=== PATIENT | male | born 1970 | race Caucasian/White ===

== ENCOUNTER 2016-09-24 20:16 | Emergency (ER) | payer OTHER ==
[2016-09-24] MEDS ORDERED: ACETAMINOPHEN 325 MG TABLET (FP) ONE (20:23)
[2016-09-24] MEDS ORDERED: ACETAMINOPHEN 325 MG TABLET (FP) PO ONE (20:25)
[2016-09-24 20:27] VITALS: BMI 35.4
[2016-09-24] MEDS ORDERED: SODIUM CHLORIDE 0.9% 1000 ML INFUS.BAG IV PRN (21:03)
--- NOTE | 2016-09-24 22:08 | PDOC ---
History of Present Illness - General Chief Complaint: SIRS, Suspected/Possible Stated Complaint: FEVER AND CHILLS Time Seen by Provider: 09/24/16 20:52 - History of Present Illness Initial Comments: 09/24/16 22:04 CHIEF COMPLAINT: fever, chills HISTORY OF PRESENT ILLNESS: 46 yo M with hx of heroin abuse, recently started on methadone program (3 days ago) presents to ED with fever and chills since this afternoon. Patient states he had a rash earlier this morning that has now resolved, but he had blood work done around noon today and afterwards he started feeling sick and feverish. He complains of sore throat and headache but denies any URI symptoms, nausea, vomiting, diarrhea. At home his took his temperature and it was 103F. He also reports feeling "heat to my chest." No recent travel or sick contacts. PAST MEDICAL HISTORY: Denies past medical history FAMILY HISTORY: Denies SOCIAL HISTORY: Intranasal heroin abuse, no IVDU. Smoking history - 1 pack daily , last cigarette 3 months ago. Denies alcohol use. SURGICAL HISTORY: Denies ALLERGIES: Vicodin, shrimp REVIEW OF SYSTEMS General/Constitutional: Fever, chills. Denies weakness, weight change. HEENT: Sore throat. Denies change in vision. Denies ear pain or discharge. Cardiovascular: Denies chest pain or shortness of breath. Respiratory: Denies cough, wheezing, or hemoptysis. Gastrointestinal: Denies nausea, vomiting, diarrhea or constipation. Denies rectal bleeding. Genitourinary: Denies dysuria, frequency, or change in urination. Musculoskeletal: Denies joint or muscle swelling or pain. Denies neck or back pain. Skin and breasts: Denies rash or easy bruising. PHYSICAL EXAM General Appearance: Uncomfortable-appearing, appropriately dressed. HEENT: EOMI, PERRLA, normal ENT inspection, normal voice, TMs normal, pharynx normal. No conjunctival pallor. No photophobia, scleral icterus. Neck: Supple. Trachea midline. No tenderness, rigidity, carotid bruit, stridor , lymphadenopathy, or thyromegaly. Respiratory/Chest: Lungs CTAB. Cardiovascular: RRR. S1, S2. Vascular Pulses: Dorsalis-Pedis (R): 2+, Dorsalis-Pedis (L): 2+ Gastrointestinal/Abdominal: Normal bowel sounds. Abdomen soft, non-distended. No tenderness or rebound tenderness. No organomegaly, pulsatile mass, guarding , hernia, hepatomegaly, splenomegaly. Lymphatic: No adenopathy, tenderness. Musculoskeletal/Extremities: Normal inspection. FROM of all extremities, normal capillary refill. Pelvis Stable. No CVA tenderness. No tenderness to extremities, pedal edema, swelling, erythema or deformity. Integumentary: Appropriate color, dry, warm. No cyanosis, erythema, jaundice or rash Neurologic: licensed investment sales assistant II-XII intact. Fully oriented, alert. Appropriate mood/affect. Motor strength 5/5. No appreciable EOM palsy, facial droop or sensory deficit. 09/24/16 22:08 Past History - Past Medical History Allergies/Adverse Reactions: Allergies Allergy/AdvReac Type Severity Reaction Status Date / Time acetaminophen [From Vicodin] Allergy Severe Nausea Verified 09/24/16 20:18 hydrocodone bitartrate Allergy Severe Nausea Verified 09/24/16 20:18 [From Vicodin] shrimp Allergy Severe Hives Verified 09/24/16 20:18 Home Medications: Ambulatory Orders Cyclobenzaprine HCl [Flexeril -] 10 mg PO TID 11/19/15 Diphenhydramine HCl [Benadryl -] 25 mg PO Q6H 09/24/16 Anemia: No Asthma: No Cancer: No Cardiac Disorders: No CVA: No COPD: No CHF: No Diabetes: No GI Disorders: No Disorders: No HTN: No Hypercholesterolemia: No Kidney Stones: No Liver Disease: No Suicide Attempt (Hx): No Seizures: Yes (R/T DRUGS LAST GREATER THAN A YEAR AGO) Thyroid Disease: No - Surgical History Abdominal Surgery: Yes (HERNIA REPAIR) Appendectomy: Yes Cardiac Surgery: No Cholecystectomy: No Lung Surgery: No Neurologic Surgery: No Orthopedic Surgery: No - Reproductive History Testicular Surgery: No - Psycho/Social/Smoking Cessation Hx Anxiety: Yes Suicidal Ideation: No Smoking History: Current every day smoker Have you smoked in the past 12 months: Yes Number of Cigarettes Smoked Daily: 30 Cigars Per Day: 0 Information on smoking cessation initiated: No 'Breaking Loose' booklet given: 11/19/15 Hx Alcohol Use: Yes Drug/Substance Use Hx: Yes Substance Use Type: Alcohol, Heroin, Opiates Hx Substance Use Treatment: Yes ([facility]) *Physical Exam - Vital Signs Last Vital Signs Temp Pulse Resp BP Pulse Ox 102.6 F H 102 H 18 150/80 98 09/24/16 20:26 09/24/16 20:26 09/24/16 20:26 09/24/16 20:26 09/24/16 20:26 ED Treatment Course - LABORATORY CBC & Chemistry Diagram: 09/24/16 21:45 09/24/16 21:45 - RADIOLOGY Radiology Studies Ordered: Category Date Time Status CHEST X-RAY PORTABLE* [RAD] Stat Radiology 09/24/16 21:03 Taken - Medications Given in the ED: ED Medications Discontinued Medications Generic Name Dose Route Start Last Admin Trade Name Freq PRN Reason Stop Dose Admin Acetaminophen 650 mg 09/24/16 20:25 09/24/16 20:25 Tylenol - PO 09/24/16 20:26 650 mg NOW ONE Administration Medical Decision Making - Medical Decision Making 09/24/16 22:09 46 yo M with hx of intranasal heroin use presents to ED with fever, chills. Patient is febrile to 102.6F and tacyh to 102 on arrival to ED. -CBC, CMP, PT/INR, cardiac profile -UA, UCx -CXR, EKG -Strep, flu swab Labs: WBC 11.7 09/25/16 00:06 Patient positive for group A strep. -Pen G IM Advised patient to f/u with PMD if symptoms do not improve in next 2 days. Advised patient of signs and symptoms for return to ER; patient verbalized understanding and agrees to plan. *DC/Admit/Observation/Transfer Diagnosis at time of Disposition: Streptococcus infection, group A - Discharge Dispostion Disposition: HOME Condition at time of disposition: Stable Admit: No - Referrals Referrals: Kenneth Dc [Primary Care Provider] - - Patient Instructions Printed Discharge Instructions: DI for Strep Throat Additional Instructions: Please follow up with your primary care doctor if symptoms do not improve in 2 days. If you experience continued fever that does not go away with Motrin, nausea, vomiting, diarrhea, or any new or worsening symptoms, please return to the ER.
[2016-09-24 22:26] LABS: BASOPHIL 0.5 % (0-2.0); EOSINOPHIL 0.1 % (0-4.5); MCHC 33.8 g/dl (32.0-35.9); MEAN CELL VOLUME 85.8 fl (80-96); MEAN PLT VOLUME 9.1 fl (7.5-11.1); NEUTROPHILS 83.3 % (42.8-82.8); PLATELET COUNT 152 K/MM3 (134-434); RDW 14.3 % (11.9-15.9); WHITE BLOOD COUNT 11.7 K/mm3 (4.0-10.0)
[2016-09-24 22:28] LABS: URINE APPEARANCE CLEAR; URINE BILIRUBIN NEGATIVE (NEGATIVE); URINE COLOR STRAW; URINE GLUCOSE (UA) NEGATIVE (NEGATIVE); URINE KETONE NEGATIVE (NEGATIVE); URINE LEUK ESTERASE NEGATIVE (NEGATIVE); URINE NITRITE NEGATIVE (NEGATIVE); URINE PROTEIN NEGATIVE (NEGATIVE); URINE UROBILINOGEN NEGATIVE E.U./dl (0.2-1.0)
[2016-09-24 22:36] LABS: URINE BLOOD 2+ (NEGATIVE)
[2016-09-24 22:38] LABS: URINE MUCUS RARE; URINE RBC 2 /hpf (0-3); URINE WBC <1 /hpf (3-5)
[2016-09-24 22:39] LABS: INR 1.21 (0.82-1.09); PROTHROMBIN TIME (PATIENT) 13.4 SEC (9.98-11.88)
[2016-09-24 22:42] LABS: ACTIVATED PTT 28.8 SECONDS (26.9-34.4)
[2016-09-24 23:06] LABS: ALBUMIN 3.7 g/dl (3.4-5.0); ANION GAP 9 (8-16); CALCIUM 8.2 mg/dL (8.5-10.1); CO2 24 mmol/L (21-32); COCKROFT - GAULT 145.14; GLUCOSE,RANDOM 97 mg/dL (74-106); SGOT/AST 23 U/L (15-37); SGPT/ALT 38 U/L (12-78)
[2016-09-24 23:10] LABS: ALK PHOS 75 U/L (45-117); BILIRUBIN,TOTAL 0.4 mg/dL (0.2-1.0); TOT PROT 7.8 g/dl (6.4-8.2); TROPONIN I < 0.02 ng/ml (0.00-0.05)
[2016-09-24 23:20] LABS: VENOUS PH 7.42 (7.32-7.42)
[2016-09-24 23:21] LABS: VENOUS BLOOD GAS HCO3 24.2 meq/L (19-25)
[2016-09-24] MEDS ORDERED: SODIUM CHLORIDE 0.9% 500 ML INFUS.BAG IV ONE (23:36)
[2016-09-24] MEDS ORDERED: KETOROLAC TROMETHAMINE 30 MG/1 ML VIAL IVPUSH ONE (23:36)
[2016-09-24] MEDS ORDERED: KETOROLAC TROMETHAMINE 30 MG/1 ML VIAL ONE (23:39)
[2016-09-25] MEDS ORDERED: PENICILLIN G BENZATHINE 1,200,000 UNIT/2 ML PFS IM ONE (00:05)
[2016-09-25] MEDS ORDERED: PENICILLIN G BENZATHINE 2,400,000 UNIT/4 ML PFS ONE (00:16)
[2016-09-25 01:11] VITALS: BP 107/61; PULSE 99; TEMP 99.1
--- NOTE | 2016-09-25 08:28 | PDOC ---
Patient Follow-up (Call Back) - Post ED Follow - Up Chief Complaint: SIRS, Suspected/Possible Disposition at time of original discharge: HOME - Disposition Additional Instructions/Notes: Throat culture + GAS no call back. rapid strep +. treated with Pen G IM in the ED.
--- NOTE | 2016-09-25 09:59 | EKG ---
Test Reason : Blood Pressure : / mmHG Vent. Rate : 088 BPM Atrial Rate : 088 BPM P-R Int : 172 ms QRS Dur : 082 ms QT Int : 326 ms P-R-T Axes : 056 032 042 degrees QTc Int : 394 ms NORMAL SINUS RHYTHM NORMAL ECG NO PREVIOUS ECGS AVAILABLE Confirmed by DEV ZUNIGA MD ([id number]) on 09/25/2016 9:58:37 AM Referred By: MYA Confirmed By:DEV ZUNIGA MD
== END 2016-09-25 01:10 | disposition home or self-care (01) ==
LOC: JER 20:16
PROC: 3E02329 Introduction of Other Anti-infective into Muscle, Percutaneous Approach (ICD-10-PCS; principal; 2016-09-24)
PROC: 3E0333Z Introduction of Anti-inflammatory into Peripheral Vein, Percutaneous Approach (ICD-10-PCS; 2016-09-24)
DX: J02.0 Streptococcal pharyngitis (principal); B95.0 Streptococcus, group A, as the cause of diseases classified elsewhere
CPT/HCPCS: 36415; 71010-TC; 80053; 81003; 81015; 82550; 82553; 82803; 83605; 84484; 85025; 85610; 85730; 86850; 86900; 86901; 87040; 87070; 87077; 87086; 87430; 87804; 93005; 93010; 99285-25

== ENCOUNTER 2017-11-17 11:25 | Emergency (ER) | payer OTHER ==
[2017-11-17 11:37] VITALS: BP 152/96; PULSE 88; TEMP 99.2; BMI 37.3
[2017-11-17] MEDS ORDERED: MAG HYDROX/AL HYDROX/SIMETH 30 ML UNIT-DOSE CUP PO ONE (13:42)
[2017-11-17] MEDS ORDERED: MAG HYDROX/AL HYDROX/SIMETH 30 ML UNIT-DOSE CUP ONE (13:56)
--- NOTE | 2017-11-17 14:03 | PDOC ---
History of Present Illness <Tr Winslow - Last Filed: 11/17/17 14:59> - History of Present Illness Initial Comments: 11/17/17 14:01 "The patient is a 47 year old male with no significant PMH who presents to the emergency department for evaluation of bloating and softer than usual stools beginning approximately 1.5 months ago. He reports everything he eats causes abdominal bloating. The patient states he started a new diet about 2 months ago which primarily consists of chicken, fish, and salads but no bread or rice. He also reports taking fish oil pills about 2 or 3 times within the same time period but ceased them as they upset his stomach. The patient denies any nausea , vomiting, or constipation. He denies fevers or chills. Denies any abdominal pain. The patient denies chest pain, shortness of breath, headache and dizziness. Denies dysuria, frequency, urgency and hematuria. Allergies: NKA Past surgical history: Appendectomy. Hernia repair. Social history: Former smoker. Former drinker. No reported drug use. PCP: Dr. Kenneth Dc " <Orestes Friend - Last Filed: 11/23/17 11:15> - General Chief Complaint: Pain Stated Complaint: ABD PAIN Time Seen by Provider: 11/17/17 13:00 Past History <Tr Winslow - Last Filed: 11/17/17 14:59> - Past Medical History Anemia: No Asthma: No Cancer: No Cardiac Disorders: No CVA: No COPD: No CHF: No Diabetes: No GI Disorders: No Disorders: No HTN: No Hypercholesterolemia: No Kidney Stones: No Liver Disease: No Seizures: Yes (R/T DRUGS LAST GREATER THAN A YEAR AGO) Thyroid Disease: No - Surgical History Abdominal Surgery: Yes (HERNIA REPAIR) Appendectomy: Yes Cardiac Surgery: No Cholecystectomy: No Lung Surgery: No Neurologic Surgery: No Orthopedic Surgery: No - Reproductive History Testicular Surgery: No - Immunization History Immunization Up to Date: Yes - Suicide/Smoking/Psychosocial Hx Smoking History: Former smoker Have you smoked in the past 12 months: No Number of Cigarettes Smoked Daily: 30 If you are a former smoker, when did you quit?: 2016 Cigars Per Day: 0 Information on smoking cessation initiated: No 'Breaking Loose' booklet given: 11/19/15 Hx Alcohol Use: Yes Drug/Substance Use Hx: Yes Substance Use Type: Alcohol, Heroin, Opiates Hx Substance Use Treatment: Yes ([facility]) <Orestes Friend - Last Filed: 11/23/17 11:15> - Past Medical History Allergies/Adverse Reactions: Allergies Allergy/AdvReac Type Severity Reaction Status Date / Time acetaminophen [From Vicodin] Allergy Severe Nausea Verified 11/17/17 11:32 hydrocodone bitartrate Allergy Severe Nausea Verified 11/17/17 11:32 [From Vicodin] shrimp Allergy Severe Hives Verified 11/17/17 11:32 Home Medications: Ambulatory Orders Cyclobenzaprine HCl [Flexeril -] 10 mg PO TID PRN 11/19/15 Diphenhydramine HCl [Benadryl -] 25 mg PO Q6H PRN 09/24/16 Hydrocodone/Acetaminophen [Hydrocodon-Acetaminophn 10-325] 1 each PO Q4H PRN Abd/GI Specific PMHX - Complaint Specific PMHX Hepatitis: No Pancreatitis: No <Orestes Friend - Last Filed: 11/23/17 11:15> Review of Systems - Review of Systems Comments:: 11/17/17 14:02 "GENERAL/CONSTITUTIONAL: No fever or chills. No weakness. HEAD, EYES, EARS, NOSE AND THROAT: No change in vision. No ear pain or discharge. No sore throat. CARDIOVASCULAR: No chest pain or shortness of breath. RESPIRATORY: No cough, wheezing, or hemoptysis. GASTROINTESTINAL: (+) Abdominal bloating (+) Soft stools. No nausea, vomiting or constipation. GENITOURINARY: No dysuria, frequency, or change in urination. MUSCULOSKELETAL: No joint or muscle swelling or pain. No neck or back pain. SKIN: No rash NEUROLOGIC: No headache, vertigo, loss of consciousness, or change in strength/ sensation. ENDOCRINE: No increased thirst. No abnormal weight change. HEMATOLOGIC/LYMPHATIC: No anemia, easy bleeding, or history of blood clots. ALLERGIC/IMMUNOLOGIC: No hives or skin allergy. " <Orestes Friend - Last Filed: 11/23/17 11:15> *Physical Exam - Vital Signs Last Vital Signs Temp Pulse Resp BP Pulse Ox 99.2 F 88 16 152/96 9 L 11/17/17 11:25 11/17/17 11:25 11/17/17 11:25 11/17/17 11:25 11/17/17 11:25 <Tr Winslow - Last Filed: 11/17/17 14:59> - Vital Signs Last Vital Signs Temp Pulse Resp BP Pulse Ox 99.2 F 88 16 152/96 9 L 11/17/17 11:25 11/17/17 11:25 11/17/17 11:25 11/17/17 11:25 11/17/17 11:25 - Physical Exam Comments: 11/17/17 14:02 "GENERAL: Awake, alert, and fully oriented, in no acute distress. HEAD: No signs of trauma EYES: PERRLA, EOMI, sclera anicteric, conjunctiva clear ENT: Auricles normal inspection, hearing grossly normal, nares patent, oropharynx clear without exudates. Moist mucosa NECK: Nontender, no stepoffs, Normal ROM, supple, no lymphadenopathy, JVD, or masses LUNGS: Breath sounds equal, clear to auscultation bilaterally. No wheezes, and no crackles HEART: Regular rate and rhythm, normal S1 and S2, no murmurs, rubs or gallops ABDOMEN: Soft, nontender, normoactive bowel sounds. No guarding, no rebound. No masses EXTREMITIES: Normal range of motion, no edema. No clubbing or cyanosis. No cords , erythema, or tenderness NEUROLOGICAL: Cranial nerves II through XII intact. 5/5 strength and sensation in all extremities, Normal speech, normal gait, normal cerebellar function SKIN: Warm, Dry, normal turgor, no rashes or lesions noted. " <Orestes Friend - Last Filed: 11/23/17 11:15> ED Treatment Course - LABORATORY CBC & Chemistry Diagram: 11/17/17 14:04 11/17/17 14:04 - ADDITIONAL ORDERS Additional order review: 11/17/17 14:04 RBC 5.09 MCV 87.6 MCHC 34.1 RDW 14.3 MPV 8.5 Neutrophils % 57.7 D Lymphocytes % 30.3 D Monocytes % 9.3 Eosinophils % 1.9 D Basophils % 0.8 - Medications Given in the ED: ED Medications Discontinued Medications Generic Name Dose Route Start Last Admin Trade Name Freq PRN Reason Stop Dose Admin Al Hydroxide/Mg Hydroxide 30 ml 11/17/17 13:42 11/17/17 14:01 Mylanta Oral Suspension - PO 11/17/17 13:43 30 ml ONCE ONE Administration <Tr Winslow - Last Filed: 11/17/17 14:59> - LABORATORY CBC & Chemistry Diagram: 11/17/17 14:04 11/17/17 14:04 - RADIOLOGY Radiology Studies Ordered: Category Date Time Status ABDOMEN [id number] [RAD] Stat Radiology 11/17/17 13:42 Ordered <Orestes Friend - Last Filed: 11/23/17 11:15> Medical Decision Making - Medical Decision Making 11/17/17 14:02 47 M with abdominal bloating and soft stools x 1.5 months. Likely dietary as pt has increased his fiber intake. Pt with benign abdomen on exam. - Labs - Abd XR - F/u GI 11/17/17 16:23 Labs wnl XR unremarkable on my read Pt reassessed - tolerating PO. States that his bloating has improved significantly with meds. No clinical signs of obstruction. Pt is well appearing, with normal vitals. Clinically stable for DC at this time. I discussed the physical exam findings, ancillary test results and final diagnoses with the patient. I answered all of the patient's questions. The patient was satisfied with the care received and felt comfortable with the discharge plan and treatment plan. The patient agrees to follow up with the primary care physician within 24-72 hours. <Orestes Friend - Last Filed: 11/23/17 11:15> *DC/Admit/Observation/Transfer - Attestations Scribe Attestion: 11/17/17 14:59 Documentation prepared by Tr Winslow, acting as medical tech for Orestes Friend MD. <Tr Winslow - Last Filed: 11/17/17 14:59> - Attestations Physician Attestion: 11/17/17 16:25 I, Dr. Orestes Friend MD, attest that this document has been prepared under my direction and personally reviewed by me in its entirety. I further attest, that it accurately reflects all work, treatment, procedures and medical decision -making performed by me. <Orestes Friend - Last Filed: 11/23/17 11:15> Diagnosis at time of Disposition: Abdominal bloating - Discharge Dispostion Disposition: HOME - Referrals Referrals: Kenneth Dc [Primary Care Provider] - Javed Rodriguez MD [Staff Physician] - Eren Meyers MD [Staff Physician] - - Patient Instructions Printed Discharge Instructions: How to Avoid Gas Additional Instructions: Please follow up with a elementary school professional within 1-2 weeks for further evaluation of your abdominal bloating. Call the number provided to make an appointment. If you experience abdominal pain, vomiting, fevers, or any other concerning symptoms, return to the ER immediately. - Post Discharge Activity
[2017-11-17 14:31] LABS: BASO % 0.8 % (0-2.0); EOS % 1.9 % (0-4.5); HEMATOCRIT 44.6 % (35.4-49); HEMOGLOBIN 15.2 GM/dL (11.7-16.9); LYMPH % 30.3 % (8-40); MCH 29.9 pg (25.7-33.7); MCHC 34.1 g/dl (32.0-35.9); MEAN CELL VOLUME 87.6 fl (80-96); MEAN PLT VOLUME 8.5 fl (7.5-11.1); MONO % 9.3 % (3.8-10.2); NEUT % 57.7 % (42.8-82.8); PLATELET COUNT 188 K/MM3 (134-434); RBC 5.09 M/mm3 (4.00-5.60); RDW 14.3 % (11.9-15.9); WHITE BLOOD COUNT 6.4 K/mm3 (4.0-10.0)
[2017-11-17 15:53] LABS: ALBUMIN 3.6 g/dl (3.4-5.0); ANION GAP 8 (8-16); BLOOD UREA NITROGEN 10 mg/dL (7-18); CALCIUM 8.8 mg/dL (8.5-10.1); CHLORIDE 104 mmol/L (98-107); CO2 27 mmol/L (21-32); CREATININE 0.9 mg/dL (0.7-1.3); GLUCOSE,RANDOM 116 mg/dL (74-106); LIPASE 162 U/L (73-393); SGPT/ALT 45 U/L (12-78); SODIUM 139 mmol/L (136-145)
[2017-11-17 15:54] LABS: ALK PHOS 94 U/L (45-117); BILIRUBIN,TOTAL 0.7 mg/dL (0.2-1.0)
[2017-11-17 16:21] LABS: POTASSIUM 4.2 mmol/L (3.5-5.1); SGOT/AST 35 U/L (15-37)
== END 2017-11-17 16:38 | disposition home or self-care (01) ==
LOC: JER 11:25
DX: R14.0 Abdominal distension (gaseous) (principal)
CPT/HCPCS: 36415; 74021-TC-FY; 80053; 83690; 85025; 99282-25

== ENCOUNTER 2018-01-06 09:11 | Day surgery (SDC) | payer OTHER ==
[2018-01-06 10:07] VITALS: BMI 37.6
--- NOTE | 2018-01-06 11:53 | PROC ---
Endoscopy Procedure Endoscopy procedure completed. Please see scanned procedure report.
[2018-01-06 11:57] VITALS: TEMP 98.4
[2018-01-06 14:23] VITALS: BP 127/61; PULSE 62
--- NOTE | 2018-01-07 16:15 | PATH ---
Surgical Pathology Report Patient Name: NITA MCGOVERN [facility]. Rec. #: [id number] /Age/Gender: 1970 (Age: 47) / M Account: [id number] Location: [facility]-ENDOSCOPY Taken: 01/06/2018 Received: 01/06/2018 Reported: 01/07/2018 Physicians: Javed Rodriguez M.D. Specimen(s) Received A: BX 2ND PORTION DUODENUM B: BX ANTRUM AND BODY C: BX GE JUNCTION D: BX TERMINAL ILEUM E: ASCENDING COLON F: BX DESCENDING COLON G: BX SIGMOID Clinical History Diarrhea, GI bleeding, colitis Postoperative diagnosis: Duodenitis, gastritis, esophagitis, normal colonoscopy, diarrhea Final Diagnosis A. SECOND PORTION DUODENUM, BIOPSY: DUODENAL MUCOSA WITH NO DIAGNOSTIC ABNORMALITIES. B. ANTRUM AND BODY, BIOPSY: GASTRIC MUCOSA WITH MILD CHRONIC GASTRITIS. POSITIVE FOR INTESTINAL METAPLASIA. IMMUNOSTAIN IS NEGATIVE FOR H. PYLORI ORGANISMS. C. GE JUNCTION, BIOPSY: ESOPHAGEAL (SQUAMOUS) MUCOSA WITH REFLUX ESOPHAGITIS. D. TERMINAL ILEUM, BIOPSY: TERMINAL ILEUM MUCOSA WITH NO DIAGNOSTIC ABNORMALITIES. E. ASCENDING COLON, BIOPSY: COLONIC MUCOSA WITH MILD CHRONIC INFLAMMATION AND REACTIVE LYMPHOID FOLLICLE. F. DESCENDING COLON, BIOPSY: COLONIC MUCOSA WITH NO DIAGNOSTIC ABNORMALITIES. G. SIGMOID COLON, BIOPSY: COLONIC MUCOSA WITH NO DIAGNOSTIC ABNORMALITIES. Electronically Signed Leonor Rogel M.D. Gross Description A. Received in formalin, labeled "biopsy second portion of duodenum" are 2 baig, irregular portions of soft tissue measuring 0.2 and 0.4 cm. in greatest dimension. The specimens are submitted in toto in one cassette. B. Received in formalin, labeled "biopsy antrum and body" are 3 baig, irregular portions of soft tissue ranging from 0.2-0.5 cm. in greatest dimension. The specimens are submitted in toto in one cassette. C. Received in formalin, labeled "biopsy GE junction" are 2 baig, irregular portions of soft tissue averaging 0.4 cm. in greatest dimension. The specimens are submitted in toto in one cassette. D. Received in formalin, labeled "terminal ileum" are 2 baig, irregular portions of soft tissue measuring 0.2 and 0.3 cm. in greatest dimension. The specimens are submitted in toto in one cassette. E. Received in formalin, labeled "biopsy ascending colon" are 3 baig, irregular portions of soft tissue averaging 0.3 cm. in greatest dimension. The specimens are submitted in toto in one cassette. F. Received in formalin, labeled "biopsy descending colon" are 3 baig, irregular portions of soft tissue ranging from 0.2-0.3 cm. in greatest dimension. The specimens are submitted in toto in one cassette. G. Received in formalin, labeled "biopsy sigmoid colon" are 2 baig, irregular portions of soft tissue averaging 0.4 cm. in greatest dimension. The specimens are submitted in toto in one cassette. 01/06/2018 [facility]01/06/2018
== END 2018-01-06 14:10 | disposition home or self-care (01) ==
LOC: JASU-ENDO 09:11
PROVIDERS: ATTEND Internal Medicine Gastroenterology
PROC: 0DB48ZX Excision of Esophagogastric Junction, Via Natural or Artificial Opening Endoscopic, Diagnostic (ICD-10-PCS; 2018-01-06)
PROC: 0DB68ZX Excision of Stomach, Via Natural or Artificial Opening Endoscopic, Diagnostic (ICD-10-PCS; 2018-01-06)
PROC: 0DBE8ZX Excision of Large Intestine, Via Natural or Artificial Opening Endoscopic, Diagnostic (ICD-10-PCS; principal; 2018-01-06 09:45)
DX: K29.00 Acute gastritis without bleeding (principal); K52.9 Noninfective gastroenteritis and colitis, unspecified; K64.8 Other hemorrhoids; K20.8 Other esophagitis; K29.80 Duodenitis without bleeding
CPT/HCPCS: 88305-TC; 88342-TC

== ENCOUNTER 2020-04-19 15:28 | Inpatient (IN) | payer OTHER ==
[2020-04-19 16:18] VITALS: BMI 37.8
[2020-04-19] MEDS ORDERED: NALOXONE HCL 0.4 MG/ML VIAL IM PRN (18:25)
[2020-04-19] MEDS ORDERED: DICYCLOMINE HCL 10 MG CAPSULE PO PRN (18:25)
[2020-04-19] MEDS ORDERED: MENTHOL/PHENOL 1 EACH UD MM PRN (18:25)
[2020-04-19] MEDS ORDERED: METHADONE HCL 10 MG TABLET (FOR DETOX USE ONLY) PO ONE (18:25)
[2020-04-19] MEDS ORDERED: MAG HYDROX/AL HYDROX/SIMETH 30 ML UNIT-DOSE CUP PO PRN (18:25)
[2020-04-19] MEDS ORDERED: MAGNESIUM HYDROX 2400MG/30ML ORAL SUSPENSION 30 ML CUP PO PRN (18:25)
[2020-04-19] MEDS ORDERED: ONDANSETRON *ODT* 4 MG TABLET SL PRN (18:25)
[2020-04-19] MEDS ORDERED: MAGNESIUM CITRATE 300 ML BOTTLE PO PRN (18:25)
[2020-04-19] MEDS ORDERED: ACETAMINOPHEN 325 MG TABLET (FP) PO PRN ×2 (18:25)
[2020-04-19] MEDS ORDERED: BISMUTH SUBSALICYLATE 524 MG/30 ML UD PO PRN (18:25)
[2020-04-19] MEDS ORDERED: P-EPHED 60MG/TRIPROLIDI 2.5MG TABLET PO PRN (18:25)
[2020-04-19] MEDS ORDERED: NICOTINE POLACRILEX 4 MG GUM BUC PRN (18:25)
[2020-04-19] MEDS ORDERED: guaiFENesin 200 MG/10 ML 10 ML UNIT-DOSE CUPS PO PRN (18:25)
[2020-04-19] MEDS: THIAMINE HCL 100 MG TABLET (FP) PO SCH (22:08)
[2020-04-19] MEDS: hydrOXYzine PAMOATE 25 MG CAPSULE (FP) PO PRN (22:08)
[2020-04-19] MEDS: MELATONIN 5 MG TABLETS PO SCH (22:08)
[2020-04-20] MEDS ORDERED: METHADONE HCL 5 MG TABLET (FOR DETOX USE ONLY) ONE (08:53)
[2020-04-20] MEDS ORDERED: METHADONE HCL 10 MG TABLET (FOR DETOX USE ONLY) ONE (08:53)
[2020-04-20] MEDS ORDERED: METHADONE (DETOX) 20 MG, METHADONE (DETOX) 5 MG PO ONE (10:00)
[2020-04-20] MEDS: NICOTINE 21 MG/24 HOURS TOPICAL PATCH TD SCH (10:27)
[2020-04-20] MEDS: PRENATAL VITAMINS W/ FOLIC ACID TABLET (FP) PO SCH (10:27)
[2020-04-20 11:58] LABS: HEMATOCRIT 46.3 % (35.4-49); HEMOGLOBIN 15.8 GM/dL (11.7-16.9); MCH 30.3 pg (25.7-33.7); MCHC 34.1 g/dl (32.0-35.9); MEAN CELL VOLUME 88.9 fl (80-96); MEAN PLT VOLUME 9.4 fl (7.5-11.1); PLATELET COUNT 161 K/MM3 (134-434); RBC 5.21 M/mm3 (4.00-5.60); WHITE BLOOD COUNT 7.4 K/mm3 (4.0-10.0)
[2020-04-20 11:59] LABS: POTASSIUM 3.9 mmol/L (3.5-5.1)
[2020-04-20 12:12] LABS: ALBUMIN 3.6 g/dl (3.4-5.0); CALCIUM 8.5 mg/dL (8.5-10.1)
[2020-04-20 12:13] LABS: BLOOD UREA NITROGEN 13.3 mg/dL (7-18)
[2020-04-20 12:16] LABS: CREATININE 0.8 mg/dL (0.55-1.3)
[2020-04-20 12:17] LABS: BILIRUBIN,TOTAL 0.9 mg/dL (0.2-1); TOT PROT 7.6 g/dl (6.4-8.2)
[2020-04-20] MEDS: METHOCARBAMOL 500 MG TABLET PO PRN (19:07)
[2020-04-20] MEDS: hydrOXYzine PAMOATE 25 MG CAPSULE (FP) PO PRN (19:07)
[2020-04-20] MEDS: MELATONIN 5 MG TABLETS PO SCH (22:17)
[2020-04-20] MEDS: THIAMINE HCL 100 MG TABLET (FP) PO SCH (22:17)
[2020-04-20] MEDS: QUEtiapine FUMARATE 100 MG TABLET (FP) PO SCH (22:17)
[2020-04-20] MEDS: cloNIDine HCL 0.1 MG TABLET PO PRN (22:18)
[2020-04-21] MEDS ORDERED: METHADONE HCL 10 MG TABLET (FOR DETOX USE ONLY) PO ONE (10:00)
[2020-04-21] MEDS: NICOTINE 21 MG/24 HOURS TOPICAL PATCH TD SCH (10:21)
[2020-04-21] MEDS: PRENATAL VITAMINS W/ FOLIC ACID TABLET (FP) PO SCH (10:22)
[2020-04-21] MEDS: METHOCARBAMOL 500 MG TABLET PO PRN (17:45)
[2020-04-21] MEDS: hydrOXYzine PAMOATE 25 MG CAPSULE (FP) PO PRN (17:45)
[2020-04-21] MEDS: cloNIDine HCL 0.1 MG TABLET PO PRN (17:46)
[2020-04-21] MEDS: QUEtiapine FUMARATE 100 MG TABLET (FP) PO SCH (22:12)
[2020-04-21] MEDS: MELATONIN 5 MG TABLETS PO SCH (22:12)
[2020-04-21] MEDS: THIAMINE HCL 100 MG TABLET (FP) PO SCH (22:12)
[2020-04-21] MEDS: IBUPROFEN 400 MG TABLET (FP) PO PRN (22:15)
[2020-04-22] MEDS ORDERED: METHADONE HCL 5 MG TABLET (FOR DETOX USE ONLY) ONE (09:23)
[2020-04-22] MEDS ORDERED: METHADONE HCL 10 MG TABLET (FOR DETOX USE ONLY) ONE (09:23)
[2020-04-22] MEDS ORDERED: METHADONE (DETOX) 10 MG, METHADONE (DETOX) 5 MG PO ONE (10:00)
[2020-04-22] MEDS: hydrOXYzine PAMOATE 25 MG CAPSULE (FP) PO PRN ×3 (10:17→22:06)
[2020-04-22] MEDS: PRENATAL VITAMINS W/ FOLIC ACID TABLET (FP) PO SCH (10:17)
[2020-04-22] MEDS: NICOTINE 21 MG/24 HOURS TOPICAL PATCH TD SCH (10:19)
[2020-04-22] MEDS: IBUPROFEN 400 MG TABLET (FP) PO PRN (17:39)
[2020-04-22] MEDS: THIAMINE HCL 100 MG TABLET (FP) PO SCH (22:06)
[2020-04-22] MEDS: MELATONIN 5 MG TABLETS PO SCH (22:06)
[2020-04-22] MEDS: QUEtiapine FUMARATE 100 MG TABLET (FP) PO SCH (22:06)
[2020-04-23] MEDS: NICOTINE 21 MG/24 HOURS TOPICAL PATCH TD SCH (09:28)
[2020-04-23] MEDS: PRENATAL VITAMINS W/ FOLIC ACID TABLET (FP) PO SCH (09:28)
[2020-04-23] MEDS ORDERED: METHADONE HCL 10 MG TABLET (FOR DETOX USE ONLY) PO ONE (10:00)
[2020-04-23] MEDS: HYDROCORTISONE 2.5% TOPICAL CREAM 30 GM TUBE TP SCH ×2 (14:17→22:00)
[2020-04-23] MEDS: hydrOXYzine PAMOATE 25 MG CAPSULE (FP) PO PRN (15:21)
[2020-04-23] MEDS ORDERED: MASKS NR ONE (17:53)
[2020-04-23] MEDS: IBUPROFEN 400 MG TABLET (FP) PO PRN (18:37)
[2020-04-23] MEDS: MELATONIN 5 MG TABLETS PO SCH (22:00)
[2020-04-23] MEDS: QUEtiapine FUMARATE 100 MG TABLET (FP) PO SCH (22:00)
[2020-04-23] MEDS: THIAMINE HCL 100 MG TABLET (FP) PO SCH (22:00)
[2020-04-23] MEDS: METHOCARBAMOL 500 MG TABLET PO PRN (22:00)
[2020-04-23 23:05] VITALS: BP 143/96; PULSE 85; TEMP 98.7
[2020-04-24] MEDS ORDERED: METHADONE HCL 5 MG TABLET (FOR DETOX USE ONLY) PO ONE (06:00)
== END 2020-04-24 07:06 | disposition home or self-care (01) | DRG 773 ==
LOC: YASAS 15:28 → Y6N 18:42
PROVIDERS: ADMIT Allergy & Immunology; ATTEND Allergy & Immunology
PROC: HZ2ZZZZ Detoxification Services for Substance Abuse Treatment (ICD-10-PCS; principal; 2020-04-19)
DX: F11.23 Opioid dependence with withdrawal (principal); F10.10 Alcohol abuse, uncomplicated; F19.24 Other psychoactive substance dependence with psychoactive substance-induced mood disorder; F17.210 Nicotine dependence, cigarettes, uncomplicated; G47.00 Insomnia, unspecified; M54.30 Sciatica, unspecified side; R45.89 Other symptoms and signs involving emotional state; K64.9 Unspecified hemorrhoids; Z86.69 Personal history of other diseases of the nervous system and sense organs; Z88.8 Allergy status to other drugs, medicaments and biological substances; Z91.013 Allergy to seafood
CPT/HCPCS: 36415; 80053; 85027; 86780; 93005; 93010; C9803; J0735; U0003

== ENCOUNTER 2021-01-29 18:30 | Emergency (ER) | payer OTHER ==
[2021-01-29 18:50] VITALS: BP 117/76; PULSE 79; BMI 38.4
[2021-01-29] MEDS ORDERED: predniSONE 20 MG TABLET (UD) PO ONE (21:00)
[2021-01-29] MEDS ORDERED: SULFAMETHOXAZOLE/TRIMETHOPRIM 800MG/160MG D.S. TABLET PO ONE (21:00)
[2021-01-29] MEDS ORDERED: CEPHALEXIN MONOHYDRATE 500 MG CAPSULE (UD) PO ONE (21:00)
[2021-01-29] MEDS ORDERED: IBUPROFEN 600 MG TABLET (FP) PO ONE ×2 (21:13→21:47)
[2021-01-29] MEDS ORDERED: CEPHALEXIN MONOHYDRATE 500 MG CAPSULE (UD) ONE (21:15)
[2021-01-29] MEDS ORDERED: predniSONE 20 MG TABLET (UD) ONE (21:15)
[2021-01-29] MEDS ORDERED: BACITRACIN 0.9 GM PACKET ONE (21:15)
== END 2021-01-29 22:30 | disposition home or self-care (01) ==
LOC: JER 18:30
DX: R21 Rash and other nonspecific skin eruption (principal)
CPT/HCPCS: 99283-25